=== PATIENT | female | born 1960 | race Two or more races ===

== ENCOUNTER → 2017-06-28 | Outpatient (CLI) | payer OTHER | END | disposition home or self-care (01) | LOC: MAMO-SONO 08:03 | DX: N84.0 Polyp of corpus uteri (principal); N64.89 Other specified disorders of breast; Z12.31 Encounter for screening mammogram for malignant neoplasm of breast; N64.4 Mastodynia; N60.11 Diffuse cystic mastopathy of right breast ==

== ENCOUNTER 2018-11-22 10:46 | Outpatient (CLI) | payer OTHER | END 2018-11-22 10:54 | disposition home or self-care (01) | LOC: MAMO-SONO 10:46 | DX: N63.10 Unspecified lump in the right breast, unspecified quadrant (principal); N63.20 Unspecified lump in the left breast, unspecified quadrant; N64.4 Mastodynia; N60.11 Diffuse cystic mastopathy of right breast ==

== ENCOUNTER 2021-02-06 11:39 | Outpatient (CLI) | payer OTHER | END 2021-02-06 11:54 | disposition home or self-care (01) | LOC: MAMO-SONO 11:39 | PROVIDERS: ATTEND Obstetrics & Gynecology Maternal & Fetal Medicine | DX: Z12.31 Encounter for screening mammogram for malignant neoplasm of breast (principal); N64.4 Mastodynia; N60.11 Diffuse cystic mastopathy of right breast; N63.0 Unspecified lump in unspecified breast ==

== ENCOUNTER 2023-12-08 14:26 | Outpatient (CLI) | payer OTHER | END 2023-12-08 14:35 | disposition home or self-care (01) | LOC: MAMO-SONO 14:26 | PROVIDERS: ATTEND Obstetrics & Gynecology Maternal & Fetal Medicine | DX: N63 Unspecified lump in breast (principal); Z12.31 Encounter for screening mammogram for malignant neoplasm of breast; N64.4 Mastodynia; N60.11 Diffuse cystic mastopathy of right breast ==

== ENCOUNTER 2024-01-03 13:21 | Outpatient (CLI) | payer OTHER | END 2024-01-03 13:22 | disposition home or self-care (01) | LOC: NUCLEAR 13:21 | PROVIDERS: ATTEND Obstetrics & Gynecology Maternal & Fetal Medicine | DX: M81.0 Age-related osteoporosis without current pathological fracture (principal) ==